=== PATIENT | male | born 1975 | race Caucasian/White ===

== ENCOUNTER 2020-01-28 16:28 | Emergency (ER) | payer SELFPAY ==
[~2020-01-28] VITALS: Ht 167.6 cm; Wt 90.7 kg
[2020-01-28] MEDS ORDERED: HYDROcodone/Acetamin 7.5/325 tab ORAL ONE (16:30)
[2020-01-28] MEDS ORDERED: Tetanus/Diptheria/Pertussis IM ONE ×2 (16:30→16:38)
--- NOTE | 2020-01-28 16:32 | Emergency Room Report ---
History of Present Illness General Chief Complaint: Lower Extremity Injury Source: Patient, EMS Present Illness HPI Disclaimer: Please note that this report is being documented using DRAGON technology. This can lead to erroneous entry secondary to incorrect interpretation by the dictating instrument. HPI: 44-year-old male presents for evaluation of left ankle pain and swelling after an injury. 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 Note immediate pain and swelling. There is an abrasion over the lateral malleolus but no significant bleeding, no puncture, no deep lacerations were noted. Unknown last tetanus. Difficulty bearing weight due to pain and swelling. Has been applying ice. No medications prior to arrival. No prior history of foot or ankle injury. PMH: Reviewed PSH: Reviewed Allergies: Denies Social Hx: Denies drug or alcohol abuse Allergies: Coded Allergies: No Known Allergies (Unverified , 01/28/20) COVID-19 Screening Contact w/high risk pt: No Recent Travel to affected area: No Experienced COVID-19 symptoms?: No Review of Systems All Other Systems: negative except mentioned in HPI Physical Exam Vital Signs Date Time Temp Pulse Resp B/P (MAP) Pulse Ox O2 Delivery O2 Flow Rate FiO2 01/28/20 16:24 97.3 80 16 132/78 (96) General: Awake and alert, no acute distress HEENT: NC/AT. EOMI. Resp: Normal work of breathing Skin: 0.5 x 0.5 cm circular abrasion over the lateral malleolus. Hemostatic, no surrounding edema. No laceration. No ulceration. MSK: Moderate soft tissue swelling around the lateral malleolus extending into the midfoot. Tenderness palpation over the anterior and posterior aspect of the lateral malleolus. Mild tenderness palpation in the midfoot region. Neuro: Awake and alert. Mentating appropriately Procedures Splinting Splinting : Consent: Emergent Location: Left lower extremity. Hand-Made Type: plaster Splint: Posterior slab with sugar tong Pre-Proc Neuro Vasc Exam: normal Post-Proc Neuro Vasc Exam: normal Patient Tolerated: Well Complications: None Medical Decision Making Diagnostic Impression: Primary Impression: Fracture of ankle, medial malleolus, closed ER Course 44-year-old male presents for evaluation of left ankle pain and swelling. Concern for fracture dislocation at this time though sprain and strain also possible. Tetanus was updated. Patient was given oral pain medications. X- ray shows a minimally displaced left medial malleolus fracture. He was placed in a posterior slab with a sugar tong splint and given crutches. Copies of his x-ray were included discharge paperwork as well as referrals to orthopedic surgery. He will follow-up on an outpatient basis. Discussed reasons to return to the emergency department. He understands and agrees with treatment plan. Other X-Ray Diagnostic Results Other X-Ray Diagnostic Results #1: X-Ray ordered: Left ankle # of Views/Limited Vs Complete: Complete Indication: Pain EP Interpretation: Yes Interpretation: other - Minimally displaced fracture of the medial malleolus Impression: Other - Minimally displaced fracture of the medial malleolus Other X-Ray Diagnostic Results #2: X-Ray ordered: Left foot # of Views/Limited Vs Complete: Complete Indication: Pain EP Interpretation: Yes Interpretation: other - Left medial malleoli fracture Impression: Other - Left medial malleolar fracture Other X-Ray Diagnostic Results #3: X-Ray ordered: Right foot # of Views/Limited Vs Complete: Complete Indication: Pain Interpretation: no dislocation, no soft tissue swelling, no fractures Impression: No acute disease Electronically Signed by: Electronically signed by Dr. Olu Casarez Last Vital Signs Date Time Temp Pulse Resp B/P (MAP) Pulse Ox O2 Delivery O2 Flow Rate FiO2 01/28/20 16:24 97.3 80 16 132/78 (96) Disposition: HOME, SELF-CARE Condition: Stable Scripts Hydrocodone Bit/Acetaminophen 7.5-325* (NORCO 7.5-325*) 1 Each Tablet 1 TAB ORAL Q6H PRN for For Pain, #12 TAB 0 Refills Prov: Olu Casarez MD 01/28/20 Ibuprofen* (MOTRIN*) 600 Mg Tablet 600 MG ORAL Q6H PRN for For Pain, #30 TAB 0 Refills Prov: Olu Casarez MD 01/28/20 Olu Casarez MD Jan 28, 2020 16:32
[2020-01-28] MEDS ORDERED: HYDROcodone/Acetamin 7.5/325 tab ONE (16:38)
--- NOTE | 2020-01-28 16:50 | NUR ---
ED Nurse Note: Pt brought into ED by ambulance for L ankle injury. Site is bruised, swollen on L ankle, no opening. ROM L foot 10/28. Pt pulese 3+ L dorsalis pedis. 300 lb crate fell on pt's foot today at 1600. Pt is alert and orientedx4, amb with assist. Pt denies cough, congestion, fever.
[2020-01-28] MEDS ORDERED: NORCO 7.5-3251 EACH ORAL (17:03)
[2020-01-28] MEDS ORDERED: IBUPROFEN600 M1 ORAL (17:03)
--- NOTE | 2020-01-28 17:04 | NUR ---
HAND-OFF: Report given to Lani PERERA.
--- NOTE | 2020-01-28 17:26 | Diagnostic Imaging Report ---
Indication: Left ankle injury Technique: 3 views of the left ankle Comparison: none Findings: There is a transverse fracture of the medial malleolus. This is nondisplaced, is distracted by a few millimeters. No other fractures. No dislocations. The joint spaces are preserved. Impression: Positive for medial malleolar fracture Nurse practitioner Lucina in the emergency room is aware
[2020-01-28 17:35] VITALS: BP 132/78
--- NOTE | 2020-01-28 17:36 | NUR ---
ED Nurse Note: Pt cleared by health care Provider for discharge. DC instructions/prescription was given and explained to pt and verbalized understanding of teachings. All medical deviecs such as ID band removed. Pt is AAO x4, ambulatory and left with all personal belongings.
--- NOTE | 2020-01-29 09:45 | Diagnostic Imaging Report ---
Indication: Left ankle injury Technique: 3 views left foot Comparison: none Findings: Medial malleolar fracture described on concurrent ankle radiograph is not clearly visible on these images except for possibly an AP view. No acute foot fracture demonstrated. No dislocation. The joint spaces are preserved. Impression: No acute foot fracture.
--- NOTE | 2020-01-29 09:46 | Diagnostic Imaging Report ---
Indication: Foot pain due to injury Technique: 3 views right foot Comparison: none Findings: No acute fractures. No dislocations. The joint spaces are preserved. Impression: Negative
== END 2020-01-28 17:36 | disposition home or self-care (01) ==
LOC: EDBD 16:28 → EMR 16:40
DX: S82.52XA Displaced fracture of medial malleolus of left tibia, initial encounter for closed fracture (principal); X58.XXXA Exposure to other specified factors, initial encounter; Z23 Encounter for immunization
CPT/HCPCS: 29515; 90471; 90715; 99284